=== PATIENT | female | born 1985 ===

== ENCOUNTER 2018-05-08 14:24 | Emergency (ER) | payer MEDICAID ==
[~2018-05-08] VITALS: Ht 165.1 cm; Wt 83.7 kg
[~2018-05-08 14:24] MED LIST: ALBU8.5H5 INH; ALPR2TAB2 PO; CIPR250T27 PO; CIPR500T87 PO; DILT120T3 PO; DILT240C80 PO; DILT60TA30 PO; DIPH25CA61 PO; DIVA500T4 PO; HYDR-3240 PO; HYDR-3307 PO; LEVO150T5 PO; LIDO5CRE19 EXT; METO25TA35 PO; METR500T PO; ONDA4TAB7 PO; OXCA600T3 PO; OXYC-307 PO; OXYC10TA47 PO; OXYC10TA6 PO; OXYC5TAB3 PO; PANT40TA3 PO; POLY17PO5 PO; POTA10CA PO; POTA10TA57 PO; POTA1GRA PO; POTA25TA4 PO; POTA5TAB2 PO; PROM12.55 PO; QUET100T4 PO; QUET400T4 PO; QUET400T6 PO; SODI325T PO; SUCR1TAB PO; SUCR1TAB33 PO; VANC1VIA3 PO; ZOLP10TA PO; [UNRECOGNIZED DRUG - CODE] PO; [UNRECOGNIZED DRUG - CODE] PO; [UNRECOGNIZED DRUG - OTHER]; [UNRECOGNIZED DRUG - OTHER] PO; metoprolol PO; muscle relaxer PO; norco PO; phenergan PO; potassium citrate PO; trazadone PO; xanax PO
[2018-05-08] MEDS ORDERED: SODIUM CHLORIDE FLUSH 10ML SYR IVF ONE (15:00)
[2018-05-08] MEDS ORDERED: SODIUM CHLORIDE 0.9% 1,000ML IVBOLUS ONE (15:00)
[2018-05-08 15:44] LABS: BASOPHILS # (AUTO) 0.13 x10^3/uL (0-0.1); BASOPHILS % (AUTO) 1 % (0-1); EOSINOPHILS # (AUTO) 0.05 x10^3/uL (0-0.4); EOSINOPHILS % (AUTO) 0 % (1-7); LYMPHOCYTES # (AUTO) 3.07 x10^3/uL (1-3.4); LYMPHOCYTES % (AUTO) 26 % (22-44); MD NO; MEAN CORPUSCULAR HEMOGLOBIN 30.1 pg (27.0-34.8); MEAN CORPUSCULAR HGB CONC 33.7 g/dL (32.4-35.8); MEAN CORPUSCULAR VOLUME 89.5 fL (80-100); MEAN PLATELET VOLUME 7.2 fL (7.4-10.4); MONOCYTES % (AUTO) 5 % (2-9); NEUTROPHILS # (AUTO) 8.14 x10^3/uL (1.8-6.8); NEUTROPHILS % (AUTO) 68 % (42-75); PLATELET COUNT 465 x10^3/uL (130-400); RED CELL DISTRIBUTION WIDTH 15.2 % (9.6-15.2)
[2018-05-08 15:52] LABS: ALBUMIN 3.8 g/dL (3.4-5.0); ANION GAP 8 mmol/L (5-15); CALCIUM 8.9 mg/dL (8.5-10.1); CHLORIDE 109 mmol/L (98-107)
[2018-05-08 15:58] LABS: ALANINE AMINOTRANSFERASE 44 U/L (12-78); ALKALINE PHOSPHATASE 96 U/L (45-117); BILIRUBIN,TOTAL 0.4 mg/dL (0.2-1.0); CREATININE 0.85 mg/dL (0.55-1.02); TOTAL PROTEIN 7.8 g/dL (6.4-8.2)
[2018-05-08] MEDS ORDERED: MORPHINE SULFATE 4 MG/ML, 1ML ONE ×2 (16:13→16:38)
[2018-05-08] MEDS: MORPHINE SULFATE 4 MG/ML, 1ML IVPush PRN ×2 (16:16→16:39)
[2018-05-08 16:26] LABS: MICROSCOPIC INDICATED
[2018-05-08] MEDS ORDERED: DIPHENHYDRAMINE 50 MG/ML, 1ML ONE (16:30)
[2018-05-08] MEDS ORDERED: DIPHENHYDRAMINE 50 MG/ML, 1ML IVPush ONE (16:30)
[2018-05-08 17:00] LABS: CULTURE INDICATED? YES
[2018-05-08] MEDS ORDERED: OMNIPAQUE 350 MG/ML, 100ML BOTTLE ONE (17:31)
[2018-05-08 17:35] VITALS: BP 112/76
== END 2018-05-08 17:54 | disposition home or self-care (01) ==
LOC: ED 16:50
DX: K52.9 Noninfective gastroenteritis and colitis, unspecified (principal); D72.829 Elevated white blood cell count, unspecified; F17.200 Nicotine dependence, unspecified, uncomplicated; Z90.49 Acquired absence of other specified parts of digestive tract
CPT/HCPCS: 36415; 74177; 80053; 81001; 83605; 83690; 84703; 85025; 87040; 87086; 93005; 96361; 96374; 96375; 99285; J1200; J7030; Q9967

== ENCOUNTER 2018-07-31 08:21 | Emergency (ER) | payer MEDICAID ==
[~2018-07-31] VITALS: Ht 165.1 cm; Wt 82.1 kg
[2018-07-31 08:54] LABS: MICROSCOPIC INDICATED
[2018-07-31 09:03] LABS: CULTURE INDICATED? NO
[2018-07-31] MEDS ORDERED: SODIUM CHLORIDE 0.9% 1,000ML IVBOLUS ONE (10:00)
[2018-07-31] MEDS ORDERED: SODIUM CHLORIDE FLUSH 10ML SYR IVF ONE (10:00)
[2018-07-31] MEDS ORDERED: MORPHINE SULFATE 4 MG/ML, 1ML ONE ×2 (10:02→11:40)
[2018-07-31] MEDS: MORPHINE SULFATE 4 MG/ML, 1ML IVPush PRN ×2 (11:05→11:41)
[2018-07-31] MEDS ORDERED: ONDANSETRON ODT 4 MG ONE (11:13)
[2018-07-31] MEDS ORDERED: METOCLOPRAMIDE 5 MG/ML, 2ML ONE (11:13)
[2018-07-31] MEDS ORDERED: METOCLOPRAMIDE 5 MG/ML, 2ML IVPush ONE (11:30)
[2018-07-31 11:53] LABS: BASOPHILS # (AUTO) 0.05 x10^3/uL (0-0.1); BASOPHILS % (AUTO) 1 % (0-1); EOSINOPHILS # (AUTO) 0.22 x10^3/uL (0-0.4); EOSINOPHILS % (AUTO) 2 % (1-7); LYMPHOCYTES # (AUTO) 2.55 x10^3/uL (1-3.4); LYMPHOCYTES % (AUTO) 24 % (22-44); MD NO; MEAN CORPUSCULAR HEMOGLOBIN 29.4 pg (27.0-34.8); MEAN CORPUSCULAR HGB CONC 33.2 g/dL (32.4-35.8); MEAN CORPUSCULAR VOLUME 88.5 fL (80-100); MEAN PLATELET VOLUME 6.8 fL (7.4-10.4); MONOCYTES # (AUTO) 0.63 x10^3/uL (0.2-0.8); MONOCYTES % (AUTO) 6 % (2-9); NEUTROPHILS # (AUTO) 7.13 x10^3/uL (1.8-6.8); NEUTROPHILS % (AUTO) 67 % (42-75); PLATELET COUNT 373 x10^3/uL (130-400); RED BLOOD COUNT 3.77 x10^6/uL (3.82-5.3); RED CELL DISTRIBUTION WIDTH 14.7 % (9.6-15.2)
[2018-07-31 12:03] LABS: ALANINE AMINOTRANSFERASE 36 U/L (12-78); ALBUMIN 3.1 g/dL (3.4-5.0); ANION GAP 8 mmol/L (5-15); CALCIUM 7.5 mg/dL (8.5-10.1); CHLORIDE 109 mmol/L (98-107); CREATININE 0.75 mg/dL (0.55-1.02)
[2018-07-31 12:05] LABS: ALKALINE PHOSPHATASE 101 U/L (45-117); TOTAL PROTEIN 6.5 g/dL (6.4-8.2)
[2018-07-31 12:22] LABS: BILIRUBIN,TOTAL < 0.1 mg/dL (0.2-1.0)
[2018-07-31 13:16] VITALS: BP 98/64
== END 2018-07-31 13:31 | disposition home or self-care (01) ==
LOC: ED 10:27
DX: N30.01 Acute cystitis with hematuria (principal); K59.00 Constipation, unspecified; M79.7 Fibromyalgia; R42 Dizziness and giddiness
CPT/HCPCS: 36415; 71045; 73030; 74176; 80053; 81001; 85025; 93005; 96361; 96374; 96375; 96376; 99285; J2765; J7030

== ENCOUNTER 2018-08-02 19:00 | Emergency (ER) | payer MEDICAID ==
[~2018-08-02] VITALS: Ht 170.2 cm; Wt 82.0 kg
[2018-08-02 19:16] VITALS: BP 144/91
[2018-08-02] MEDS ORDERED: ACETAMINOPHEN 325 MG TABLET PO ONE (20:00)
[2018-08-02 20:42] LABS: MICROSCOPIC INDICATED
[2018-08-02 20:52] LABS: CULTURE INDICATED? NO
== END 2018-08-02 20:20 | disposition left against medical advice (07) ==
LOC: ED 20:16
DX: G89.29 Other chronic pain (principal); R10.31 Right lower quadrant pain; R10.11 Right upper quadrant pain
CPT/HCPCS: 81001; 93005; 99285

== ENCOUNTER 2018-10-08 10:12 | Emergency (ER) | payer MEDICAID ==
[~2018-10-08] VITALS: Ht 165.1 cm; Wt 83.3 kg
[2018-10-08] MEDS ORDERED: HYDROmorphone 2 MG/ML, 1ML IVPush PRN (11:00)
[2018-10-08] MEDS ORDERED: SODIUM CHLORIDE FLUSH 10ML SYR IVF ONE (11:00)
[2018-10-08] MEDS ORDERED: PROMETHAZINE 25 MG/ML, 1ML IM ONE (11:00)
[2018-10-08 11:17] LABS: BASOPHILS # (AUTO) 0.05 x10^3/uL (0-0.1); BASOPHILS % (AUTO) 0 % (0-1); EOSINOPHILS # (AUTO) 0.09 x10^3/uL (0-0.4); EOSINOPHILS % (AUTO) 1 % (1-7); LYMPHOCYTES # (AUTO) 1.83 x10^3/uL (1-3.4); LYMPHOCYTES % (AUTO) 15 % (22-44); MD NO; MEAN CORPUSCULAR HEMOGLOBIN 29.7 pg (27.0-34.8); MEAN CORPUSCULAR VOLUME 87.3 fL (80-100); MONOCYTES # (AUTO) 0.45 x10^3/uL (0.2-0.8); MONOCYTES % (AUTO) 4 % (2-9); NEUTROPHILS # (AUTO) 9.96 x10^3/uL (1.8-6.8); NEUTROPHILS % (AUTO) 81 % (42-75); PLATELET COUNT 436 x10^3/uL (130-400); RED BLOOD COUNT 4.28 x10^6/uL (3.82-5.3); RED CELL DISTRIBUTION WIDTH 15.3 % (9.6-15.2)
[2018-10-08 11:24] LABS: ALANINE AMINOTRANSFERASE 39 U/L (12-78); ALBUMIN 4.1 g/dL (3.4-5.0); ANION GAP 10 mmol/L (5-15); CALCIUM 8.2 mg/dL (8.5-10.1); CHLORIDE 107 mmol/L (98-107); CREATININE 0.73 mg/dL (0.55-1.02)
[2018-10-08 11:29] LABS: ALKALINE PHOSPHATASE 95 U/L (45-117); BILIRUBIN,TOTAL 0.2 mg/dL (0.2-1.0); TOTAL PROTEIN 7.9 g/dL (6.4-8.2); TROPONIN I < 0.015 ng/mL (0.000-0.045)
[2018-10-08] MEDS ORDERED: HYDROmorphone 2 MG/ML, 1ML ONE (11:37)
[2018-10-08] MEDS ORDERED: PROMETHAZINE 25 MG/ML, 1ML ONE (11:37)
[2018-10-08 11:58] LABS: HCG UR SG 1.012 (1.003-1.030); MICROSCOPIC AUTO
[2018-10-08 12:04] LABS: CULTURE INDICATED? YES
[2018-10-08] MEDS ORDERED: HYDROmorphone 1 MG/ML, 1ML IM ONE (12:30)
[2018-10-08 12:33] VITALS: BP 115/82
== END 2018-10-08 13:27 | disposition home or self-care (01) ==
LOC: ED 10:27
DX: A04.72 Enterocolitis due to Clostridium difficile, not specified as recurrent (principal); F41.1 Generalized anxiety disorder
CPT/HCPCS: 36415; 74022; 74176; 80053; 81001; 81025; 83690; 84484; 85025; 87086; 87147; 93005; 96372; 99284; J1170; J2550

== ENCOUNTER 2018-11-01 22:44 | Emergency (ER) | payer MEDICAID ==
[~2018-11-01] VITALS: Ht 165.1 cm; Wt 79.0 kg
[2018-11-01] MEDS ORDERED: LORazepam 1MG TABLET PO ONE (23:00)
--- NOTE | 2018-11-01 23:04 | NUR ---
Rad needs clearance of c-spine by CT.
[2018-11-01] MEDS ORDERED: LORazepam 1MG TABLET ONE (23:07)
[2018-11-01] MEDS ORDERED: OXYcodone/APAP 5/325MG TABLET PO ONE (23:30)
--- NOTE | 2018-11-01 23:43 | NUR ---
PT UNABLE TO KEEP ANYTHING, REFUSED PO MEDS ATT. DR. BOTELLO NOTIFIED
--- NOTE | 2018-11-01 23:59 | NUR ---
UNABLE TO OBTAIN PIV. WILL FIND SOMEONE WHO CAN DO ULTRASOUND IV.
[2018-11-02] MEDS ORDERED: morphine SULFATE 10 MG/ML, 1ML IVPush ONE
--- NOTE | 2018-11-02 00:01 | NUR ---
CT WAITING FOR BETA RESULT AND IV.
[2018-11-02] MEDS ORDERED: DIPHENHYDRAMINE 50 MG/ML, 1ML ONE (00:31)
[2018-11-02] MEDS ORDERED: MORPHINE SULFATE 4 MG/ML, 1ML ONE (00:32)
[2018-11-02 00:37] LABS: BASOPHILS # (AUTO) 0.05 x10^3/uL (0-0.1); BASOPHILS % (AUTO) 1 % (0-1); EOSINOPHILS # (AUTO) 0.43 x10^3/uL (0-0.4); EOSINOPHILS % (AUTO) 5 % (1-7); LYMPHOCYTES # (AUTO) 3.23 x10^3/uL (1-3.4); LYMPHOCYTES % (AUTO) 34 % (22-44); MD NO; MEAN CORPUSCULAR HEMOGLOBIN 29.3 pg (27.0-34.8); MEAN CORPUSCULAR HGB CONC 33.4 g/dL (32.4-35.8); MEAN CORPUSCULAR VOLUME 87.7 fL (80-100); MEAN PLATELET VOLUME 6.8 fL (7.4-10.4); MONOCYTES # (AUTO) 0.63 x10^3/uL (0.2-0.8); MONOCYTES % (AUTO) 7 % (2-9); NEUTROPHILS # (AUTO) 5.16 x10^3/uL (1.8-6.8); NEUTROPHILS % (AUTO) 54 % (42-75); PLATELET COUNT 348 x10^3/uL (130-400); RED BLOOD COUNT 4.26 x10^6/uL (3.82-5.3); RED CELL DISTRIBUTION WIDTH 15.1 % (9.6-15.2)
--- NOTE | 2018-11-02 00:41 | NUR ---
PIV OBTAINED VIA US. CT NOTIFIED. PT MEDICATED FOR PAIN AND CONTRAST ALLERGY PER EMAR
[2018-11-02 00:50] LABS: ALANINE AMINOTRANSFERASE 74 U/L (12-78); ANION GAP 6 mmol/L (5-15); CALCIUM 8.3 mg/dL (8.5-10.1); CHLORIDE 109 mmol/L (98-107); CREATININE 0.64 mg/dL (0.55-1.02)
--- NOTE | 2018-11-02 00:51 | NUR ---
CT WAITING FOR NEGATIVE BETA RESULT.
[2018-11-02 00:54] LABS: ALKALINE PHOSPHATASE 108 U/L (45-117); BILIRUBIN,TOTAL 0.3 mg/dL (0.2-1.0); TOTAL PROTEIN 7.6 g/dL (6.4-8.2)
[2018-11-02] MEDS ORDERED: DIPHENHYDRAMINE 50 MG/ML, 1ML IVPush ONE (01:00)
[2018-11-02] MEDS ORDERED: OMNIPAQUE 350 MG/ML, 100ML BOTTLE ONE (01:20)
--- NOTE | 2018-11-02 01:22 | NUR ---
PT BACK FROM CT
[2018-11-02 01:26] VITALS: BP 108/77
--- NOTE | 2018-11-02 01:58 | NUR ---
PT REQUESTING PAIN MEDS, DR BOTELLO NOTIFIED
--- NOTE | 2018-11-02 02:15 | NUR ---
PT REQUESTING TO SEE DR. BOTELLO. DR BOTELLO NOTIFIED
--- NOTE | 2018-11-02 02:33 | NUR ---
DR BOTELLO AT BEDSIDE
--- NOTE | 2018-11-02 03:03 | NUR ---
Patient given discharge instructions and they have confirmed that they understand the instructions. Patient ambulatory with steady gait.
== END 2018-11-02 03:05 | disposition home or self-care (01) ==
LOC: ED 11-02 00:02
DX: S29.012A Strain of muscle and tendon of back wall of thorax, initial encounter (principal); S30.1XXA Contusion of abdominal wall, initial encounter; S20.219A Contusion of unspecified front wall of thorax, initial encounter; M54.2 Cervicalgia; R11.2 Nausea with vomiting, unspecified; R42 Dizziness and giddiness; R07.9 Chest pain, unspecified; W11.XXXA Fall on and from ladder, initial encounter; Y93.89 Activity, other specified; Y92.89 Other specified places as the place of occurrence of the external cause; Y99.8 Other external cause status
CPT/HCPCS: 36415; 71250; 72072; 72110; 72125; 74177; 80053; 84703; 85025; 93005; 96374; 96375; 99284; J1200; J2270; Q9967

== ENCOUNTER 2018-11-06 20:32 | Emergency (ER) | payer MEDICAID ==
[~2018-11-06] VITALS: Ht 165.1 cm; Wt 79.0 kg
[2018-11-06] MEDS ORDERED: PROMETHAZINE 25 MG/ML, 1ML ONE (21:15)
[2018-11-06] MEDS ORDERED: PROMETHAZINE 25 MG/ML, 1ML IM ONE (21:30)
--- NOTE | 2018-11-06 21:30 | NUR ---
PT TO ED WITH N/V X1 DAY. PT STATED ASSOCIATED BLOATING AND CRAMPING. ABD IS ROUNDED AND FIRM. PT CONNECTED TO MONITORS AND VSS. PA TO BEDSIDE. ORDERS RECEIVED. PT MEDICATED PER DEC. UA AND LABS DRAWN. AWAITING RESULTS AT THIS TIME. CALL LIGHT WITHIN REACH.
[2018-11-06 21:33] LABS: BASOPHILS # (AUTO) 0.07 x10^3/uL (0-0.1); BASOPHILS % (AUTO) 1 % (0-1); EOSINOPHILS # (AUTO) 0.63 x10^3/uL (0-0.4); EOSINOPHILS % (AUTO) 6 % (1-7); LYMPHOCYTES # (AUTO) 3.29 x10^3/uL (1-3.4); LYMPHOCYTES % (AUTO) 32 % (22-44); MD NO; MEAN CORPUSCULAR HEMOGLOBIN 29.3 pg (27.0-34.8); MEAN CORPUSCULAR HGB CONC 33.6 g/dL (32.4-35.8); MEAN CORPUSCULAR VOLUME 87.2 fL (80-100); MEAN PLATELET VOLUME 6.9 fL (7.4-10.4); MONOCYTES # (AUTO) 0.62 x10^3/uL (0.2-0.8); MONOCYTES % (AUTO) 6 % (2-9); NEUTROPHILS % (AUTO) 55 % (42-75); PLATELET COUNT 401 x10^3/uL (130-400); RED BLOOD COUNT 4.24 x10^6/uL (3.82-5.3); RED CELL DISTRIBUTION WIDTH 15.1 % (9.6-15.2)
--- NOTE | 2018-11-06 21:35 | NUR ---
PT BEING TAKEN TO RAD
[2018-11-06 21:40] LABS: MICROSCOPIC AUTO
[2018-11-06 21:41] LABS: CULTURE INDICATED? YES
[2018-11-06 21:43] LABS: ALANINE AMINOTRANSFERASE 39 U/L (12-78); ALBUMIN 3.7 g/dL (3.4-5.0); ANION GAP 4 mmol/L (5-15); CALCIUM 8.4 mg/dL (8.5-10.1); CHLORIDE 107 mmol/L (98-107); CREATININE 0.83 mg/dL (0.55-1.02)
[2018-11-06 21:48] LABS: ALKALINE PHOSPHATASE 93 U/L (45-117); BILIRUBIN,TOTAL 0.1 mg/dL (0.2-1.0); TOTAL PROTEIN 7.5 g/dL (6.4-8.2)
--- NOTE | 2018-11-06 21:52 | NUR ---
PT BACK FROM RADIOLOGY. REPORTING PAIN. PA NOTIFIED. NO NEW ORDERS RECEIVED AT THIS TIME.
[2018-11-06 22:00] VITALS: BP 95/54
--- NOTE | 2018-11-06 22:20 | NUR ---
MD TO BEDSIDE TO UPDATE ON POC.
[2018-11-06] MEDS ORDERED: ZIPRASIDONE 20 MG INJ IM ONE ×2 (22:34→23:00)
[2018-11-06] MEDS ORDERED: HYDROcodone/APAP 5/325 TABLET ONE (22:35)
--- NOTE | 2018-11-06 22:37 | NUR ---
ORDERS RECEIVED FOR MEDS. THEN PT TO BE DCd
--- NOTE | 2018-11-06 22:40 | NUR ---
pt medicated per dec. preparing to dc.
[2018-11-06] MEDS ORDERED: HYDROcodone/APAP 5/325 TABLET PO ONE (23:00)
== END 2018-11-06 22:42 | disposition home or self-care (01) ==
LOC: ED 21:54
DX: R10.84 Generalized abdominal pain (principal); R11.2 Nausea with vomiting, unspecified
CPT/HCPCS: 36415; 74021; 80053; 81001; 83690; 84703; 85025; 87086; 96372; 99284; J2550

== ENCOUNTER 2018-12-16 20:47 | Emergency (ER) | payer MEDICAID ==
[~2018-12-16] VITALS: Ht 165.1 cm; Wt 85.7 kg
--- NOTE | 2018-12-16 23:19 | NUR ---
REPORT FROM [facility] SENIOR. PT SITTING UP IN [facility] NOTED. LAB IN TO DRAW. PT HAS MULTIPLE CO CHO/SZ/ABD PAIN. HX OF SAME. PT PROVIDED CUP FOR UA AND ASKED TO PROVIDE SAMPLE.
[2018-12-16] MEDS ORDERED: SODIUM CHLORIDE FLUSH 10ML SYR IVF ONE (23:30)
[2018-12-16] MEDS ORDERED: SODIUM CHLORIDE 0.9% 1,000ML IVBOLUS ONE (23:30)
[2018-12-16 23:33] LABS: ALANINE AMINOTRANSFERASE 31 U/L (12-78); ALBUMIN 4.1 g/dL (3.4-5.0); ANION GAP 8 mmol/L (5-15); CALCIUM 8.2 mg/dL (8.5-10.1); CHLORIDE 108 mmol/L (98-107); CREATININE 0.84 mg/dL (0.55-1.02)
[2018-12-16] MEDS ORDERED: MORPHINE SULFATE 4 MG/ML, 1ML ONE (23:33)
[2018-12-16 23:35] LABS: BASOPHILS # (AUTO) 0.05 x10^3/uL (0-0.1); BASOPHILS % (AUTO) 0 % (0-1); EOSINOPHILS # (AUTO) 0.26 x10^3/uL (0-0.4); EOSINOPHILS % (AUTO) 2 % (1-7); LYMPHOCYTES # (AUTO) 2.43 x10^3/uL (1-3.4); LYMPHOCYTES % (AUTO) 18 % (22-44); MD NO; MEAN CORPUSCULAR HEMOGLOBIN 28.9 pg (27.0-34.8); MEAN CORPUSCULAR HGB CONC 33.4 g/dL (32.4-35.8); MEAN CORPUSCULAR VOLUME 86.3 fL (80-100); MEAN PLATELET VOLUME 6.6 fL (7.4-10.4); MONOCYTES # (AUTO) 0.89 x10^3/uL (0.2-0.8); MONOCYTES % (AUTO) 7 % (2-9); NEUTROPHILS # (AUTO) 9.92 x10^3/uL (1.8-6.8); NEUTROPHILS % (AUTO) 73 % (42-75); PLATELET COUNT 408 x10^3/uL (130-400); RED CELL DISTRIBUTION WIDTH 15.8 % (9.6-15.2)
[2018-12-16 23:36] LABS: ALKALINE PHOSPHATASE 78 U/L (45-117); BILIRUBIN,TOTAL 0.2 mg/dL (0.2-1.0); TOTAL PROTEIN 7.6 g/dL (6.4-8.2)
[2018-12-16 23:53] LABS: HCG UR SG 1.019 (1.003-1.030); MICROSCOPIC NOT IND
[2018-12-16 23:54] LABS: CULTURE INDICATED? NO
[2018-12-17] MEDS: MORPHINE SULFATE 4 MG/ML, 1ML IVPush PRN ×2 (00:09→00:46)
--- NOTE | 2018-12-17 00:40 | NUR ---
PT REPORTS LITTLE IMPROVEMENT IN PAIN W/ MEDICATIONS. SECOND DOSE ADMINISTERED. PT HAS BEEN UNABLE TO PROVIDE STOOL SAMPLE. CHART UP FOR RECHECK
[2018-12-17] MEDS ORDERED: MORPHINE SULFATE 4 MG/ML, 1ML ONE (00:43)
[2018-12-17 00:46] VITALS: BP 100/66
[2018-12-17] MEDS ORDERED: PROMETHAZINE 25 MG/ML, 1ML ONE (00:50)
[2018-12-17] MEDS ORDERED: POTASSIUM CHLORIDE 20 MEQ TAB.ER.PRT ONE (00:56)
--- NOTE | 2018-12-17 00:58 | NUR ---
PT MEDICATED PER EMAR FOR NAUSEA AND HYPOKALEMIA, K+3.2. POC IS DC. PT MADE AWARE. AWAITING DC INSTRUCTIONS
[2018-12-17] MEDS ORDERED: PROMETHAZINE 25 MG/ML, 1ML IM ONE (01:00)
[2018-12-17] MEDS ORDERED: POTASSIUM CHLORIDE 20 MEQ TAB.ER.PRT PO ONE (01:00)
--- NOTE | 2018-12-17 01:19 | NUR ---
NO N/V WHILE IN ED. SPO2>90% ON RA. PT REPORTS IMPROVMENT IN PAIN WITH ADDITIONAL MEDICATIONS. DC EDUCATION PROVIDED, PT DEMONSTRATES UNDERSTANDING. PT AMBULATED STEADILY TO WHEELCHAIR IN HALLWAY. WHEELED TO DC WITH RN. PT TO TAKE PUBLIC TRANSPORTATION
== END 2018-12-17 01:21 | disposition home or self-care (01) ==
LOC: ED 23:10
DX: R10.84 Generalized abdominal pain (principal); R19.7 Diarrhea, unspecified; R51 Headache
CPT/HCPCS: 36415; 74022; 80053; 81003; 81025; 83690; 85025; 96372; 96374; 96376; 99284; J2550; J7030

== ENCOUNTER 2019-01-21 14:49 | Emergency (ER) | payer MEDICAID ==
[~2019-01-21] VITALS: Ht 165.1 cm; Wt 89.3 kg
[~2019-01-21 14:49] MED LIST changes: -QUET400T6 PO; +QUET400T7 PO
--- NOTE | 2019-01-21 15:18 | NUR ---
Med student at bedside to evaluate pt.
[2019-01-21 15:21] LABS: CULTURE INDICATED? YES; MICROSCOPIC INDICATED
--- NOTE | 2019-01-21 15:26 | NUR ---
Lab at bedside.
[2019-01-21] MEDS ORDERED: PROMETHAZINE 25 MG/ML, 1ML ONE (15:29)
[2019-01-21] MEDS ORDERED: FAMOTIDINE 20 MG TABLET ONE (15:29)
[2019-01-21] MEDS ORDERED: PROMETHAZINE 25 MG/ML, 1ML IM ONE (15:30)
[2019-01-21] MEDS ORDERED: FAMOTIDINE 20 MG TABLET PO ONE (15:30)
--- NOTE | 2019-01-21 15:37 | NUR ---
Dr. Ross at bedside to evaluate pt.
--- NOTE | 2019-01-21 15:40 | NUR ---
Pt refused straight cath. aware.
[2019-01-21 15:48] LABS: BASOPHILS # (AUTO) 0.17 x10^3/uL (0-0.1); BASOPHILS % (AUTO) 2 % (0-1); EOSINOPHILS # (AUTO) 0.61 x10^3/uL (0-0.4); EOSINOPHILS % (AUTO) 6 % (1-7); LYMPHOCYTES # (AUTO) 2.79 x10^3/uL (1-3.4); LYMPHOCYTES % (AUTO) 27 % (22-44); MD NO; MEAN CORPUSCULAR HEMOGLOBIN 27.9 pg (27.0-34.8); MEAN CORPUSCULAR HGB CONC 32.6 g/dL (32.4-35.8); MEAN CORPUSCULAR VOLUME 85.4 fL (80-100); MEAN PLATELET VOLUME 6.7 fL (7.4-10.4); MONOCYTES # (AUTO) 0.55 x10^3/uL (0.2-0.8); MONOCYTES % (AUTO) 5 % (2-9); NEUTROPHILS # (AUTO) 6.12 x10^3/uL (1.8-6.8); NEUTROPHILS % (AUTO) 60 % (42-75); PLATELET COUNT 402 x10^3/uL (130-400); RED BLOOD COUNT 4.32 x10^6/uL (3.82-5.3); RED CELL DISTRIBUTION WIDTH 16.1 % (9.6-15.2)
[2019-01-21 15:53] LABS: ALANINE AMINOTRANSFERASE 36 U/L (12-78); ALBUMIN 4.2 g/dL (3.4-5.0); ANION GAP 8 mmol/L (5-15); CALCIUM 8.7 mg/dL (8.5-10.1); CHLORIDE 109 mmol/L (98-107); CREATININE 0.79 mg/dL (0.55-1.02)
[2019-01-21 15:58] LABS: ALKALINE PHOSPHATASE 89 U/L (45-117); BILIRUBIN,TOTAL 0.3 mg/dL (0.2-1.0); TOTAL PROTEIN 7.9 g/dL (6.4-8.2)
--- NOTE | 2019-01-21 16:42 | NUR ---
Pt resting on gurney, states that she is still having abdominal pain. MD aware. All exams are complete, chart up for recheck.
--- NOTE | 2019-01-21 17:03 | NUR ---
ASSUMED CARE FOR DISCHARGE INSTRUCTIONS. PT UP AMBULATORY AND STABLE ON FEET.
[2019-01-21 17:04] VITALS: BP 137/76
== END 2019-01-21 17:06 | disposition home or self-care (01) ==
LOC: ED 16:12
DX: R10.84 Generalized abdominal pain (principal); R11.2 Nausea with vomiting, unspecified; R19.7 Diarrhea, unspecified; F17.200 Nicotine dependence, unspecified, uncomplicated
CPT/HCPCS: 36415; 74021; 80053; 81001; 83690; 84703; 85025; 87086; 96372; 99284; J2550

== ENCOUNTER 2019-02-06 11:15 | Emergency (ER) | payer MEDICAID ==
[~2019-02-06] VITALS: Ht 165.1 cm; Wt 84.0 kg
--- NOTE | 2019-02-06 12:10 | NUR ---
Pt to 4 from lobby
[2019-02-06 12:38] VITALS: BP 109/72
--- NOTE | 2019-02-06 12:38 | NUR ---
Pt c/o N/V/D and abd bloating x3 weeks. Pt placed in gown, positioned for comfort in bed.
[2019-02-06] MEDS ORDERED: PROMETHAZINE 25 MG/ML, 1ML ONE (12:50)
[2019-02-06] MEDS ORDERED: PROMETHAZINE 25 MG/ML, 1ML IM ONE (13:00)
[2019-02-06] MEDS ORDERED: SODIUM CHLORIDE FLUSH 10ML SYR IVF ONE (13:00)
[2019-02-06] MEDS ORDERED: SODIUM CHLORIDE 0.9% 1,000ML IVBOLUS ONE (13:00)
--- NOTE | 2019-02-06 13:02 | NUR ---
BREAK RN: MEDICATED FOR NAUSEA PER ORDER, TO X RAY VIA RPABLO
[2019-02-06 13:14] LABS: BASOPHILS # (AUTO) 0.12 x10^3/uL (0-0.1); BASOPHILS % (AUTO) 1 % (0-1); EOSINOPHILS # (AUTO) 0.05 x10^3/uL (0-0.4); EOSINOPHILS % (AUTO) 0 % (1-7); LYMPHOCYTES # (AUTO) 2.28 x10^3/uL (1-3.4); LYMPHOCYTES % (AUTO) 19 % (22-44); MD NO; MEAN CORPUSCULAR HGB CONC 32.5 g/dL (32.4-35.8); MEAN CORPUSCULAR VOLUME 86.1 fL (80-100); MEAN PLATELET VOLUME 6.5 fL (7.4-10.4); MONOCYTES # (AUTO) 0.78 x10^3/uL (0.2-0.8); MONOCYTES % (AUTO) 6 % (2-9); NEUTROPHILS # (AUTO) 9.07 x10^3/uL (1.8-6.8); NEUTROPHILS % (AUTO) 74 % (42-75); PLATELET COUNT 456 x10^3/uL (130-400); RED CELL DISTRIBUTION WIDTH 16.1 % (9.6-15.2)
[2019-02-06 13:15] LABS: ALANINE AMINOTRANSFERASE 104 U/L (12-78); ALBUMIN 4.1 g/dL (3.4-5.0); ANION GAP 8 mmol/L (5-15); CALCIUM 8.3 mg/dL (8.5-10.1); CHLORIDE 108 mmol/L (98-107); CREATININE 0.71 mg/dL (0.55-1.02)
[2019-02-06 13:20] LABS: ALKALINE PHOSPHATASE 85 U/L (45-117); BILIRUBIN,TOTAL 0.5 mg/dL (0.2-1.0)
--- NOTE | 2019-02-06 14:00 | NUR ---
REPORT TAKEN FROM EDMOND. PO FLUIDS GIVEN. PATIENT UPDATED ON PLAN OF CARE
== END 2019-02-06 14:36 | disposition home or self-care (01) ==
LOC: ED 14:30
DX: K52.9 Noninfective gastroenteritis and colitis, unspecified (principal)
CPT/HCPCS: 36415; 74021; 80053; 84703; 85025; 96372; 99284; J2550

== ENCOUNTER 2019-02-19 22:10 | Emergency (ER) | payer MEDICAID ==
[~2019-02-19] VITALS: Ht 165.1 cm; Wt 86.3 kg
[2019-02-19] MEDS ORDERED: PROMETHAZINE 25 MG/ML, 1ML IM ONE (23:00)
[2019-02-19] MEDS ORDERED: PROMETHAZINE 25 MG/ML, 1ML ONE (23:09)
[2019-02-19 23:18] LABS: BASOPHILS # (AUTO) 0.07 x10^3/uL (0-0.1); BASOPHILS % (AUTO) 1 % (0-1); EOSINOPHILS # (AUTO) 0.28 x10^3/uL (0-0.4); EOSINOPHILS % (AUTO) 4 % (1-7); LYMPHOCYTES # (AUTO) 3.01 x10^3/uL (1-3.4); LYMPHOCYTES % (AUTO) 39 % (22-44); MD NO; MEAN CORPUSCULAR HEMOGLOBIN 28.5 pg (27.0-34.8); MEAN CORPUSCULAR HGB CONC 33.3 g/dL (32.4-35.8); MEAN CORPUSCULAR VOLUME 85.6 fL (80-100); MONOCYTES # (AUTO) 0.49 x10^3/uL (0.2-0.8); MONOCYTES % (AUTO) 6 % (2-9); NEUTROPHILS # (AUTO) 3.94 x10^3/uL (1.8-6.8); NEUTROPHILS % (AUTO) 51 % (42-75); PLATELET COUNT 316 x10^3/uL (130-400); RED BLOOD COUNT 4.33 x10^6/uL (3.82-5.3); RED CELL DISTRIBUTION WIDTH 15.9 % (9.6-15.2)
[2019-02-19 23:18] LABS: CULTURE INDICATED? YES; MICROSCOPIC INDICATED
[2019-02-19 23:30] LABS: ALANINE AMINOTRANSFERASE 27 U/L (12-78); ALBUMIN 3.7 g/dL (3.4-5.0); ANION GAP 7 mmol/L (5-15); CALCIUM 7.8 mg/dL (8.5-10.1); CHLORIDE 113 mmol/L (98-107); CREATININE 0.74 mg/dL (0.55-1.02)
[2019-02-19 23:34] LABS: ALKALINE PHOSPHATASE 64 U/L (45-117)
[2019-02-19 23:35] LABS: BILIRUBIN,TOTAL < 0.1 mg/dL (0.2-1.0)
[2019-02-20 00:55] VITALS: BP 149/88
== END 2019-02-20 00:57 | disposition home or self-care (01) ==
LOC: ED 23:28
DX: S06.311A Contusion and laceration of right cerebrum with loss of consciousness of 30 minutes or less, initial encounter (principal); R11.2 Nausea with vomiting, unspecified; R10.31 Right lower quadrant pain; R10.11 Right upper quadrant pain; F17.200 Nicotine dependence, unspecified, uncomplicated; X58.XXXA Exposure to other specified factors, initial encounter; Y93.89 Activity, other specified; Y92.89 Other specified places as the place of occurrence of the external cause; Y99.8 Other external cause status
CPT/HCPCS: 36415; 70450; 80053; 81001; 83690; 84703; 85025; 87086; 93005; 96372; 99284; J2550

== ENCOUNTER 2019-03-01 16:15 | Emergency (ER) | payer MEDICAID ==
[~2019-03-01] VITALS: Ht 165.1 cm; Wt 83.1 kg
--- NOTE | 2019-03-01 17:00 | NUR ---
pt presents with complaints of nausea and vomitting following 08/03 left sided chest pain that begain 03/10/2019 around 1300. pt reports one syncople episode this morning that was witnessed by family who said she was unconsious 3-4 minutes. Pt has extensive hx of heart disease including hx of stress tachycardia that resulted in an ablation and placement of a permanemt pacemaker. she has a st. pat pacemaker and has had three pacemakers placed. pt also had an TX july 2018 with cardiac cath.
[2019-03-01 17:11] LABS: BASOPHILS # (AUTO) 0.05 x10^3/uL (0-0.1); BASOPHILS % (AUTO) 1 % (0-1); EOSINOPHILS # (AUTO) 0.02 x10^3/uL (0-0.4); EOSINOPHILS % (AUTO) 0 % (1-7); LYMPHOCYTES # (AUTO) 2.83 x10^3/uL (1-3.4); LYMPHOCYTES % (AUTO) 25 % (22-44); MD NO; MEAN CORPUSCULAR HEMOGLOBIN 28.3 pg (27.0-34.8); MEAN CORPUSCULAR HGB CONC 33.2 g/dL (32.4-35.8); MEAN CORPUSCULAR VOLUME 85.1 fL (80-100); MEAN PLATELET VOLUME 6.6 fL (7.4-10.4); MONOCYTES # (AUTO) 0.55 x10^3/uL (0.2-0.8); MONOCYTES % (AUTO) 5 % (2-9); NEUTROPHILS # (AUTO) 7.84 x10^3/uL (1.8-6.8); NEUTROPHILS % (AUTO) 69 % (42-75); PLATELET COUNT 510 x10^3/uL (130-400); RED BLOOD COUNT 4.46 x10^6/uL (3.82-5.3); RED CELL DISTRIBUTION WIDTH 15.8 % (9.6-15.2)
[2019-03-01 17:20] LABS: ANION GAP 12 mmol/L (5-15); CALCIUM 8.7 mg/dL (8.5-10.1); CHLORIDE 107 mmol/L (98-107)
[2019-03-01 17:21] LABS: ALANINE AMINOTRANSFERASE 28 U/L (12-78); ALBUMIN 4.2 g/dL (3.4-5.0)
[2019-03-01 17:25] LABS: ALKALINE PHOSPHATASE 72 U/L (45-117); BILIRUBIN,TOTAL 0.2 mg/dL (0.2-1.0); TOTAL PROTEIN 7.9 g/dL (6.4-8.2); TROPONIN I < 0.015 ng/mL (0.000-0.045)
[2019-03-01] MEDS ORDERED: ACETAMINOPHEN 325 MG TABLET ONE (17:28)
[2019-03-01] MEDS ORDERED: METOCLOPRAMIDE 10MG TABLET ONE (17:28)
[2019-03-01] MEDS ORDERED: ACETAMINOPHEN 325 MG TABLET PO ONE (17:30)
[2019-03-01] MEDS ORDERED: METOCLOPRAMIDE 10MG TABLET PO ONE (17:30)
--- NOTE | 2019-03-01 18:00 | NUR ---
PT REFUSING TYLENOL, AWAITING [facility] PACER INTEROGATION, WCTM.
[2019-03-01 18:10] VITALS: BP 102/69
--- NOTE | 2019-03-01 18:11 | NUR ---
pt resting uncomfortably. reports nausea and chest pain and headache 9/10.
== END 2019-03-01 18:33 | disposition home or self-care (01) ==
LOC: ED 18:27
DX: R55 Syncope and collapse (principal); Z95.0 Presence of cardiac pacemaker; Z90.49 Acquired absence of other specified parts of digestive tract
CPT/HCPCS: 36415; 71046; 80053; 84484; 85025; 93005; 99284

== ENCOUNTER 2019-09-27 08:04 | Emergency (ER) | payer MEDICAID ==
[~2019-09-27] VITALS: Ht 165.1 cm; Wt 72.2 kg
[~2019-09-27 08:04] MED LIST changes: -HYDR-3307 PO; +HYDR-36 PO; -LIDO5CRE19 EXT; +LIDO5CRE26 EXT; -PROM12.55 PO; +PROM12.57 PO
[2019-09-27 08:07] VITALS: BP 106/69
--- NOTE | 2019-09-27 08:26 | NUR ---
PT TO ED FOR N/V/D AND RIGHT SIDED ABD PAIN X4 DAYS. PT STATES UNABLE TO KEEP ANYTHING DOWN. PT CONNECTED TO MONITORS. VSS. PT UP SELF TO RR TO PROVIDE URINE. WENDY FRANKS TO BS FOR ASSESSMENT. AWAITING ORDERS.
[2019-09-27] MEDS ORDERED: SODIUM CHLORIDE FLUSH 10ML SYR IVF ONE (08:30)
[2019-09-27] MEDS ORDERED: FAMOTIDINE 20 MG/2 ML IV ONE (08:30)
[2019-09-27] MEDS ORDERED: PROMETHAZINE 25 MG/ML, 1ML IM ONE (09:00)
[2019-09-27 09:01] LABS: MICROSCOPIC NOT IND
--- NOTE | 2019-09-27 09:06 | NUR ---
unsuccessful piv attempted by this rn. edmd and edpa notified. ok to hold off on piv at this time. when pt notified that no iv will be established and all medications will be po, pt became angry and aggressive, stating "fuck this [facility]. i'm just gonna go home and try tylenol. i'm not gonna sit here in pain." edmd and edpa notifed. pt up self with steady gait to exit. pt refused to sign ama paperwork and left.
[2019-09-27 09:07] LABS: CULTURE INDICATED? NO
[2019-09-27 09:10] LABS: AMPHETAMINE SCREEN, URINE Negative (Negative); BARBITURATE SCREEN, URINE Negative (Negative); BENZODIAZEPINE SCREEN, URINE Positive (Negative); CANNABINOID SCREEN, URINE Positive (Negative); COCAINE SCREEN, URINE Negative (Negative); METHADONE SCREEN, URINE Negative (Negative); OPIATE SCREEN, URINE Negative (Negative)
[2019-09-27] MEDS ORDERED: FAMOTIDINE 20 MG TABLET PO ONE (10:00)
== END 2019-09-27 09:12 | disposition left against medical advice (07) ==
LOC: ED 08:48
DX: R10.9 Unspecified abdominal pain (principal); R19.7 Diarrhea, unspecified; R11.2 Nausea with vomiting, unspecified; R30.0 Dysuria; I10 Essential (primary) hypertension; F41.1 Generalized anxiety disorder; F17.200 Nicotine dependence, unspecified, uncomplicated; Z87.440 Personal history of urinary (tract) infections; Z90.49 Acquired absence of other specified parts of digestive tract; Z95.0 Presence of cardiac pacemaker; Z87.19 Personal history of other diseases of the digestive system
CPT/HCPCS: 80307; 81003; 99283

== ENCOUNTER 2019-11-07 06:28 | Emergency (ER) | payer SELFPAY ==
[~2019-11-07] VITALS: Ht 165.1 cm; Wt 73.2 kg
[2019-11-07 06:31] VITALS: BP 122/76
--- NOTE | 2019-11-07 06:37 | NUR ---
C-COLLAR PLACED IN TRIAGE. EKG BEING DONE NOW.
--- NOTE | 2019-11-07 06:58 | NUR ---
RN to bedside, patient refusing to stay and have scans done. Patient states she will follow up with her primary care. RN informed patient she could not be discharged medically without assuring them that there is no damage to her cervical spine. Patient asked to sign against medical advice paperwork. Patient refused. Patient ambulated steadily with no difficulties out discharge door.
== END 2019-11-07 07:03 | disposition left against medical advice (07) ==
LOC: ED 06:52
DX: S16.1XXA Strain of muscle, fascia and tendon at neck level, initial encounter (principal); R55 Syncope and collapse; R56.9 Unspecified convulsions; K92.0 Hematemesis; R31.9 Hematuria, unspecified; M25.512 Pain in left shoulder; M25.511 Pain in right shoulder; F17.200 Nicotine dependence, unspecified, uncomplicated; X58.XXXA Exposure to other specified factors, initial encounter; Y93.89 Activity, other specified; Y92.098 Other place in other non-institutional residence as the place of occurrence of the external cause; Y99.8 Other external cause status
CPT/HCPCS: 93005; 99283